=== PATIENT | female | born 1970 | race Caucasian/White ===

== ENCOUNTER 2019-02-23 08:59 | Emergency (ER) | payer SELFPAY ==
[~2019-02-23] VITALS: Ht 162.6 cm; Wt 81.6 kg
[2019-02-23] MEDS ORDERED: IBUPROFEN SUSP 100MG/5ML (MOTRIN) UDC PO ONE (10:00)
[2019-02-23] MEDS ORDERED: DEXAMETHASONE 4 MG/ML SDV (DECADRON) PO ONE (10:00)
[2019-02-23] MEDS ORDERED: ANTACID SUSP 30 ML UDC (MYLANTA) PO ONE (11:15)
[2019-02-23] MEDS ORDERED: LIDOCAINE 2% VISCOUS 15 ML UDC PO ONE (11:15)
--- NOTE | 2019-02-23 11:15 | ED EENT ---
History of Present Illness General Chief Complaint: Oral/Throat Problems Stated Complaint: SORE THROAT History of Present Illness Date Seen by Provider: Feb 23, 2019 Time Seen by Provider: 11:09 Initial Comments Patient presents emergency department for evaluation of a sore throat that has been going on for 3 days. She says it is very painful to swallow but has been able to. She has been taking ibuprofen for pain with minimal relief. She denies any voice change fevers chills nausea vomiting or systemic symptoms. She is in no obvious distress lying on the bed with normal vital signs. Allergies and Home Medications Allergies Coded Allergies: No Known Drug Allergies (Unverified , 02/23/19) Patient Home Medication List Home Medication List Reviewed: Yes Review of Systems Review of Systems Constitutional: no symptoms reported Ears: No Symptoms Reported Nose: no symptoms reported Mouth: no symptoms reported Throat: pain, swelling; denies neck stiffness, denies hoarse, denies aphonia, denies muffled; painful swallowing; denies difficulty with fluids Respiratory: no symptoms reported Cardiovascular: no symptoms reported Gastrointestinal: no symptoms reported Physical Exam Height, Weight, BMI Height: '" Weight: lbs. oz. kg; BMI Method: General Appearance: WD/WN, no apparent distress Nose: normal inspection Mouth/Throat: normal mouth inspection, pharynx swelling, tonsillar exudate; No voice changes; other (bilateral tonsils slightly enlarged with purulence noted on both however there is no signs of peritonsillar abscess. Uvula is midline and not swollen. Pharynx is diffusely erythematous although she has a quite patent airway.) Neck: non-tender, full range of motion, supple, normal inspection Cardiovascular: normal peripheral pulses Respiratory: lungs clear, no respiratory distress Progress/Results/Core Measures Results/Orders Lab Results Laboratory Tests Test 02/23/19 09:35 Range/Units Group A Streptococcus Screen NEGATIVE NEGATIVE My Orders Orders - ASHLEIGH ELLIS DO Rapid Strep A Screen (02/23/19 09:37) Dexamethasone Injection (Decadron Inject (02/23/19 10:00) Ibuprofen Suspension (Motrin Suspension) (02/23/19 10:00) Antacid Suspension (Mylanta Suspension (02/23/19 11:15) Lidocaine 2% Viscous 15 Ml (Xylocaine Vi (02/23/19 11:15) Progress Progress Note : Progress Note Patient has signs of purulent tonsillitis as well as a pharyngitis. There is no signs of peritonsillar abscess or retropharyngeal abscess or epiglottitis. She has normal voice and no neck stiffness or rigidity. She also has no fevers and appears nontoxic. Her strep swab is negative however that is not completely rule out bacterial etiology. She was given Decadron ibuprofen and lidocaine here and felt better. I told her I would prescribe her lidocaine and she should continue taking ibuprofen and Tylenol for pain and drink plenty of fluids. I discussed antibiotics and told her that I will prescribe her antibiotics but she did not have to started immediately she can try waiting a day or 2 and if she is getting better she would not need them however if she is getting worse she could go ahead and start the amoxicillin. She said amoxicillin gives her yeast infection so prescribe her Diflucan as well. I told her if she is having inability to swallow tolerate her secretions fevers difficulty breathing or other general concerns to come back to the emergency department immediately. Patient aware and agreeable with plan for discharge and verbalized understanding of the above instructions. Departure Impression Primary Impression: Pharyngitis Qualified Codes: J02.9 - Acute pharyngitis, unspecified Additional Impression: Acute infective tonsillitis Qualified Codes: J03.90 - Acute tonsillitis, unspecified Disposition: 01 HOME, SELF-CARE Condition: Stable Departure-Patient Inst. Referrals: NO,LOCAL PHYSICIAN (PCP/Family) Primary Care Physician Patient Instructions: Viral Pharyngitis (DC) Add. Discharge Instructions: All discharge instructions reviewed with patient and/or family. Voiced understanding. Take 400mg of ibuprofen every 6 hours and 650mg of tylenol every 6 hours. Drink plenty of fluids. Use otc cepacol. ASHLEIGH ELLIS DO Feb 23, 2019 11:15
[2019-02-23 11:57] VITALS: BP 153/77
--- NOTE | 2019-02-24 12:09 | NUR ---
Called to [facility] per v.o. Dr Aguirre, please refill pt's lost bottle for the Amoxicillin 875 mg p.o. BID #[address] José. Pt called earlier today requesting another bottle as can not find her antibiotic as it may have fell out of her purse somewhere. Dr Aguirre did initially not refill for negative strep test viewed on [employer] but lab has now sent a culture report of abundant growth Beta Strep Hemolytic Group C. Pt is having painful swallow/symptomatic still. Spoke with Jelena Swift at [facility]. Patient was notified.
[2019-02-24] MEDS ORDERED: AMOX875T2 PO (12:20)
== END 2019-02-23 12:01 | disposition home or self-care (01) ==
LOC: ER FS 09:01
DX: J03.90 Acute tonsillitis, unspecified (principal)
CPT/HCPCS: 87430; 99284

== ENCOUNTER 2019-11-04 14:20 | Emergency (ER) | payer SELFPAY ==
[~2019-11-04] VITALS: Ht 163 cm; Wt 86.1 kg
[~2019-11-04 14:20] MED LIST: AMOX875T2 PO
[2019-11-04 14:56] LABS: BACTERIA,URINE NEGATIVE /HPF; BILIRUBIN,URINE NEGATIVE (NEGATIVE); CLARITY,URINE CLEAR; COLOR,URINE YELLOW; GLUCOSE, URINE (UA) NEGATIVE (NEGATIVE); KETONES,URINE TRACE (NEGATIVE); LEUKOCYTE ESTERASE ,URINE NEGATIVE (NEGATIVE); NITRITE,URINE NEGATIVE (NEGATIVE); PROTEIN,URINE NEGATIVE (NEGATIVE); WBC,URINE RARE /HPF
--- NOTE | 2019-11-04 15:01 | ED Back Pain ---
General Chief Complaint: Back Problems Stated Complaint: KIMMIE FLANK PAIN Source of Information: Patient Exam Limitations: No Limitations History of Present Illness Date Seen by Provider: Nov 04, 2019 Time Seen by Provider: 14:55 Initial Comments Presents to 4 days of mid back pain without radiation. Worse with movement, primarily ending forward or twisting. Denies any increased frequency or pain with urination. Denies fever or chills. Denies nausea, vomiting or abdominal pain. Denies any recent history of trauma. Has a history of back pain and back surgery, however states this is not typical of her previous back pain. Allergies and Home Medications Allergies Coded Allergies: No Known Drug Allergies (Unverified , 02/23/19) Home Medications Amoxicillin 875 Mg Tablet, 875 MG PO BID, (Reported) Patient Home Medication List Home Medication List Reviewed: Yes Review of Systems Constitutional: no symptoms reported, see HPI; No fever, No malaise, No weakness Respiratory: No cough, No short of breath Cardiovascular: No chest pain, No palpitations Gastrointestinal: No abdominal pain, No vomiting Genitourinary: no symptoms reported, see HPI Musculoskeletal: back pain; No joint pain; muscle pain; No muscle weakness, No neck pain Past Dyzvcat-Nvnxxs-Bgkcnh Hx Past Med/Social Hx: Reviewed Nursing Past Med/Soc Hx Patient Social History Alcohol Use: Denies Use Recreational Drug Use: No Smoking Status: Current Everyday Smoker Type Used: Cigarettes 2nd Hand Smoke Exposure: Yes Recent Foreign Travel: No Contact w/Someone Who Travel: No Recent Hopitalizations: No Physical Abuse: No Sexual Abuse: No Mistreated: No Fear: No Seasonal Allergies Seasonal Allergies: No Past Medical History Surgeries: Yes (back surgery) Orthopedic Respiratory: No Cardiac: No Neurological: No Genitourinary: No Gastrointestinal: No Musculoskeletal: No Endocrine: No HEENT: Yes Tonsilitis Cancer: No Psychosocial: No Integumentary: No Blood Disorders: No Adverse Reaction/Blood Tranf: No Physical Exam Vital Signs Capillary Refill : Height, Weight, BMI Height: 5'4.00" Weight: 180lbs. oz. 81.517150gy; BMI Method:Stated General Appearance: No Apparent Distress, WD/WN Gastrointestinal: Non Tender, Soft Back: Normal Inspection, No Vertebral Tenderness, Decreased Range of Motion (2 to pain), Muscle Spasm (b/l upper lumbar paraspinal ms R > L); No Vertebral Tenderness Progress/Results/Core Measures Results/Orders Lab Results Laboratory Tests Test 11/04/19 14:30 Range/Units Urine Color YELLOW Urine Clarity CLEAR Urine pH 6.0 5-9 Urine Specific [place] 1.020 1.016-1.022 Urine Protein NEGATIVE NEGATIVE Urine Glucose (UA) NEGATIVE NEGATIVE Urine Ketones TRACE H NEGATIVE Urine Nitrite NEGATIVE NEGATIVE Urine Bilirubin NEGATIVE NEGATIVE Urine Urobilinogen 0.2 < = 1.0 MG/DL Urine Leukocyte Esterase NEGATIVE NEGATIVE Urine RBC (Auto) 2+ H NEGATIVE Urine RBC 2-5 H /HPF Urine WBC RARE /HPF Urine Squamous Epithelial Cells 2-5 /HPF Urine Crystals NONE /LPF Urine Bacteria NEGATIVE /HPF Urine Casts NONE /LPF Urine Mucus SMALL H /LPF Urine Other /HPF Urine Culture Indicated NO My Orders Orders - ROFANSTTARYN GUPTA DO Ua Culture If Indicated (11/04/19 14:45) Departure Impression Primary Impression: Back strain Qualified Codes: S39.012A - Strain of muscle, fascia and tendon of lower back, initial encounter Disposition: HOME, SELF-CARE Condition: Stable Departure-Patient Inst. Referrals: [facility],LOCAL PHYSICIAN (PCP) Primary Care Physician Patient Instructions: Lumbar Muscle Strain (DC) Add. Discharge Instructions: Call to make a follow up appointment in 1 wk, sooner if worse. All discharge instructions reviewed with patient and/or family. Voiced understanding. Scripts Ibuprofen (Ibuprofen) 800 Mg Tablet 800 MG PO Q8H PRN for PAIN, #30 TAB 0 Refills Prov: MELODYVENSTINETARYN L DO 11/04/19 Cyclobenzaprine HCl (Cyclobenzaprine HCl) 10 Mg Tablet 10 MG PO Q8H PRN for SPASMS, #20 TAB 0 Refills Prov: ROVENSTINE,TARYN L DO 11/04/19 ROVENSTINENANYTARYN L DO Nov 04, 2019 15:01
[2019-11-04] MEDS ORDERED: IBUP-1780 PO (15:30)
[2019-11-04] MEDS ORDERED: CYCL10TA9 PO (15:30)
[2019-11-04 15:34] VITALS: BP 150/69
--- OUTSIDE RECORDS SUMMARY | 2019-11-08 14:51 | XMS REPORT | Continuity of Care Document ---
Author Organization Unknown Address Unknown Phone Unavailable Allergies Active Description Code Type Severity Reaction Onset Reported/Identified Relationship to Patient Clinical Status Yes No Known Drug Allergies [id number] Drug Allergy Unknown N/A 02/23/2019 Medications There is no data. Problems Date Dx Coded Attending Type Code Diagnosis Diagnosed By 02/23/2019 ASHLEIGH ELLIS DO Ot J02 .9 ACUTE PHARYNGITIS, UNSPECIFIED 02/23/2019 ASHLEIGH ELLIS DO Ot J03.90 ACUTE TONSILLITIS, UNSPECIFIED 02/25/2019 ASHLEIGH ELLIS DO Ot J02 .9 ACUTE PHARYNGITIS, UNSPECIFIED 02/25/2019 ASHLEIGH ELLIS DO Ot J03.90 ACUTE TONSILLITIS, UNSPECIFIED 03/01/2019 ASHLEIGH ELLIS DO Ot J02 .9 ACUTE PHARYNGITIS, UNSPECIFIED 03/01/2019 ASHLEIGH ELLIS DO Ot J03.90 ACUTE TONSILLITIS, UNSPECIFIED Procedures There is no data. Results Test Result Range Streptococcus pyogenes antigen detection - 02/23/19 09:35 Streptococcus pyogenes antigen detection NEGATIVE NEGATIVE Bacterial throat culture - 02/23/19 00:2 2 Bacterial throat culture [id number] NRG FREE TEXT EXTERNAL PLUS NORMAL NORA NR G QUANTITY OF GROWTH Abundant Growth NRG Complete urinalysis with reflex to cultu re - 11/04/19 14:30 Urine color determination YELLOW NRG Urine clarity determination CLEAR NR G Urine pH measurement by test strip 6.0 5-9 Specific gravity of urine by test strip 1.020 1.016-1.022 Urine protein assay by test strip, semi-quantitative NEGATIVE NEGATIVE Urine glucose detection by automated test strip NE GATIVE NEGATIVE Erythrocytes detection in urine sediment by light micr oscopy 2+ NEGATIVE Urine ketones detection by automated test strip TR ELY NEGATIVE Urine nitrite detection by test strip NEGATIVE NEGATIVE Urine total bilirubin detection by test strip NEGA TIVE NEGATIVE Urine urobilinogen measurement by automated test strip (mass/volume) 0.2 mg/dL < = 1.0 Urine leukocyte esterase detection by dipstick NEG ATIVE NEGATIVE Automated urine sediment erythrocyte cou nt by microscopy (number/high power field) [HPF] NRG Automated urine sediment leukocyte count by microscopy (number/high power field) RARE NRG Bacteria detection in urine sediment by light microsco py NEGATIVE NRG Squamous epithelial cells detection in u rine sediment by light microscopy 2-5 NRG Crystals detection in urine sediment by light microsco py NONE NRG Casts detection in urine sediment by light microscopy NONE NRG Mucus detection in urine sediment by light microscopy SMALL NRG Complete urinalysis with reflex to culture NO NRG Encounters ACCT No. Visit Date/Time Discharge Status Pt. Type Provider Facility Loc./Unit Complaint [id number] 11/04/2019 14:22:00 020 15:34:00 DIS Emergency TARYN LOTT DO [facility] ER FS KIMMIE FLANK PAIN [id number] 02/23/2019 09:01:00 019 12:01:00 DIS Emergency ASHLEIGH ELLIS DO [facility] ER FS SORE THROAT
== END 2019-11-04 15:34 | disposition home or self-care (01) ==
LOC: EDUNIT# 14:20 → ER FS 14:22
DX: S39.012A Strain of muscle, fascia and tendon of lower back, initial encounter (principal); F17.210 Nicotine dependence, cigarettes, uncomplicated; X58.XXXA Exposure to other specified factors, initial encounter
CPT/HCPCS: 81000; 99282

== ENCOUNTER 2020-08-17 20:05 | Emergency (ER) | payer OTHER ==
[~2020-08-17 20:05] MED LIST changes: +CYCL10TA9 PO; +IBUP-1780 PO
[2020-08-17 21:00] LABS: HEMATOCRIT 50 % (35-52); HEMOGLOBIN 16.4 G/DL (11.5-16.0); MEAN CORPUSCULAR HEMOGLOBIN 30 PG (25-34); MEAN CORPUSCULAR HGB CONC 33 G/DL (32-36); MEAN CORPUSCULAR VOLUME 91 FL (80-99); MEAN PLATELET VOLUME 9.9 FL (7.4-10.4); PLATELET COUNT 391 10^3/uL (130-400); WHITE BLOOD COUNT 16.4 10^3/uL (4.3-11.0)
[2020-08-17 21:01] LABS: BASOPHILS % (AUTO) 0 % (0-10); EOSINOPHILS % (AUTO) 1 % (0-10); LYMPHOCYTES % (AUTO) 21 % (12-44); MONOCYTES % (AUTO) 6 % (0-12); NEUTROPHILS % (AUTO) 72 % (42-75)
[2020-08-17 21:02] LABS: BASOPHILS # (AUTO) 0.1 10^3/uL (0.0-0.1); EOSINOPHILS # (AUTO) 0.1 10^3/uL (0.0-0.3); LYMPHOCYTES # (AUTO) 3.5 X 10^3 (1.0-4.0); MONOCYTES # (AUTO) 0.9 X 10^3 (0.0-1.0); NEUTROPHILS # (AUTO) 11.8 X 10^3 (1.8-7.8)
--- NOTE | 2020-08-17 21:11 | Diagnostic Imaging Report ---
PROCEDURE: CT head and maxillofacial without contrast. TECHNIQUE: Multiple contiguous axial images were obtained through the head and facial bones without the use of intravenous contrast. Auto Exposure Controls were utilized during the CT exam to meet ALARA standards for radiation dose reduction. INDICATION: Fall with head and face trauma and loss of consciousness. FINDINGS: The ventricles and sulci are within normal limits. There is no hydrocephalus. There is no midline shift. There is no mass, hemorrhage or extra-axial fluid collection. The calvarium is intact. The frontal, ethmoid, sphenoid and maxillary sinuses are clear. Mastoid air cells are clear. The zygomatic arches are intact. The nasal bones intact. The pterygoid plates are intact. Lamina papyracea and orbital floors are intact. IMPRESSION: 1. No acute intracranial abnormality. 2. No displaced facial bone fracture. Dictated by: Dictated on workstation # [id number]
[2020-08-17 21:19] LABS: BAND NEUTROPHILS 2 %; BASOPHILS % (MANUAL) 0 %; EOSINOPHILS % (MANUAL) 1 %; LYMPHOCYTES % (MANUAL) 19 %; MONOCYTES % (MANUAL) 4 %; NEUTROPHILS % (MANUAL) 74 %
[2020-08-17 21:26] LABS: BUN/CREATININE RATIO 24; CARBON DIOXIDE 24 MMOL/L (21-32); CHLORIDE 103 MMOL/L (98-107); CREATININE SERUM 0.93 MG/DL (0.60-1.30); GFR ESTIMATED > 60; POTASSIUM 4.8 MMOL/L (3.6-5.0); SODIUM 141 MMOL/L (135-145)
[2020-08-17 21:27] LABS: ALANINE AMINOTRANSFERASE 16 U/L (0-55); ALBUMIN 4.7 GM/DL (3.2-4.5); ALKALINE PHOSPHATASE 115 U/L (40-136); BILIRUBIN,TOTAL 0.5 MG/DL (0.1-1.0); GLUCOSE 102 MG/DL (70-105); TOTAL PROTEIN 8.4 GM/DL (6.4-8.2)
[2020-08-17 21:45] LABS: AMPHETAMINE SCREEN, URINE NEGATIVE (NEGATIVE); BARBITURATE SCREEN URINE NEGATIVE (NEGATIVE); BENZODIAZEPINES SCREEN URINE NEGATIVE (NEGATIVE); CANNABINOID SCREEN, URINE POSITIVE (NEGATIVE); COCAINE SCREEN URINE NEGATIVE (NEGATIVE); METHADONE STAT NEGATIVE (NEGATIVE); METHAMPHETAMINE SCREEN URINE S NEGATIVE (NEGATIVE); OPIATE SCREEN URINE NEGATIVE (NEGATIVE); OXYCODONE STAT NEGATIVE (NEGATIVE); PROPOXYPHENE STAT NEGATIVE (NEGATIVE); TRICYCLIC ANTIDEPRESSANTS SCRE NEGATIVE (NEGATIVE)
--- NOTE | 2020-08-17 22:30 | ED Syncope ---
General Chief Complaint: Dizziness/Syncope Stated Complaint: HIGH BP Nursing Triage Note: [facility] and hitting her head on concrete. Per officer report, pt has issues with hypertension and panic attacks and passed out and hit her head. Officer reports a loc for about 4 minutes. Upon arrival, pt is alert and oriented. History of Present Illness Date Seen by Provider: Aug 17, 2020 Time Seen by Provider: 20:20 Initial Comments Patient is a 50-year-old female who had a witnessed syncopal episode while in custody. Patient fell face forward striking her forehead and right cheek bone. Patient reports loss of bladder function. She does not recall the episode and did not attempt to prior to DrOumar santos prior to falling. Denies dizziness lightheadedness palpitations, shortness of breath chest pain. Cards witnessed seizure-like episode. Patient has been incarcerated for 2 days. She denies history of long-standing alcohol, drug abuse her narcotic ingestion prior to episode. She is not diabetic. No history of CAD, PE, arrhythmia, valvular heart disease or prior seizure episodes. No history of alcohol withdrawal. No other acute symptoms or complaints. Timing/Prior Episodes: No Prior History Symptoms Prior to Episode: Injury Precipitating Factors: Activity Loss of Consciousness: Prolonged (Minutes) Current Symptoms: Back to Normal, Headache Allergies and Home Medications Allergies Coded Allergies: No Known Drug Allergies (Unverified , 02/23/19) Home Medications Amoxicillin 875 Mg Tablet, 875 MG PO BID, (Reported) Cyclobenzaprine HCl 10 Mg Tablet, 10 MG PO Q8H PRN for SPASMS Prescribed by: TARYN PAKSTCANDY on 11/04/19 1530 Ibuprofen 800 Mg Tablet, 800 MG PO Q8H PRN for PAIN Prescribed by: TARYN Jack ROVENSTINE on 11/04/19 1530 Patient Home Medication List Home Medication List Reviewed: Yes Review of Systems Constitutional: see HPI EENTM: see HPI Respiratory: see HPI Cardiovascular: see HPI Gastrointestinal: see HPI Genitourinary: see HPI Musculoskeletal: see HPI Skin: see HPI Psychiatric/Neurological: See HPI All Other Systems Reviewed Negative Unless Noted: Yes Past Fdhlasr-Uthihl-Jtfxzl Hx Past Med/Social Hx: Reviewed Nursing Past Med/Soc Hx Patient Social History Alcohol Use: Denies Use Recreational Drug Use: No Type Used: Cigarettes 2nd Hand Smoke Exposure: Yes Recent Foreign Travel: No Contact w/Someone Who Travel: No Recent Infectious Disease Expo: No Recent Hopitalizations: No Physical Abuse: No Sexual Abuse: No Seasonal Allergies Seasonal Allergies: No Past Medical History Surgeries: Yes (back surgery) Orthopedic Respiratory: No Cardiac: No Neurological: No Genitourinary: No Gastrointestinal: No Musculoskeletal: No Endocrine: No HEENT: Yes Tonsilitis Cancer: No Psychosocial: No Integumentary: No Blood Disorders: No Adverse Reaction/Blood Tranf: No Physical Exam Vital Signs Vital Signs - First Documented 08/17/20 20:05 Temp 36.8 Pulse 66 Resp 16 B/P (MAP) 122/56 (78) Pulse Ox 100 O2 Delivery Room Air Capillary Refill : Less Than 3 Seconds Height, Weight, BMI Height: 5'4.00" Weight: 180lbs. oz. 81.792869ii; 32.00 BMI Method:Stated General Appearance: No Apparent Distress, WD/WN HEENT: PERRL/EOMI, Normal ENT Inspection, Pharynx Normal, Other (right cheek swelling) Neck: Full Range of Motion, Non Tender, Supple Cardiovascular: Regular Rate, Rhythm, No Edema, No Murmur Respiratory: Chest Non Tender, Lungs Clear Gastrointestinal: Non Tender, Soft Extremities: Normal Capillary Refill, Normal Inspection, Non Tender Neurologic/Psychiatric: Alert, Oriented x3, No Motor/Sensory Deficits, Normal Mood/Affect, risk control specialist II-XII Norm as Tested Cranial Nerves: Normal Speech, PERRL, Abnormal Pupil Position Coordination/Gait: Normal Finger to Nose, Abnormal Gait Motor/Sensory: No Motor Deficit, No Sensory Deficit, No Pronator Drift, Negative Babinski's Sign Reflexes: 4+ Bicep (R), 4+ Bicep (L), 4+ Tricep (R) Focused Exam Sepsis Stage: Ruled Out Progress/Results/Core Measures Results/Orders Lab Results Laboratory Tests Test 08/17/20 20:52 08/17/20 20:54 08/17/20 21:27 Range/Units White Blood Count 16.4 H 4.3-11.0 10^3/uL Red Blood Count 5.49 4.35-5.85 10^6/uL Hemoglobin 16.4 H 11.5-16.0 G/DL Hematocrit 50 35-52 % Mean Corpuscular Volume 91 80-99 FL Mean Corpuscular Hemoglobin 30 25-34 PG Mean Corpuscular Hemoglobin Concent 33 32-36 G/DL Red Cell Distribution Width 13.5 10.0-14.5 % Platelet Count 391 130-400 10^3/uL Mean Platelet Volume 9.9 7.4-10.4 FL Immature Granulocyte % (Auto) 1 % Neutrophils (%) (Auto) 72 42-75 % Lymphocytes (%) (Auto) 21 12-44 % Monocytes (%) (Auto) 6 0-12 % Eosinophils (%) (Auto) 1 0-10 % Basophils (%) (Auto) 0 0-10 % Neutrophils # (Auto) 11.8 H 1.8-7.8 X 10^3 Lymphocytes # (Auto) 3.5 1.0-4.0 X 10^3 Monocytes # (Auto) 0.9 0.0-1.0 X 10^3 Eosinophils # (Auto) 0.1 0.0-0.3 10^3/uL Basophils # (Auto) 0.1 0.0-0.1 10^3/uL Immature Granulocyte # (Auto) 0.1 0.0-0.1 10^3/uL Neutrophils % (Manual) 74 % Lymphocytes % (Manual) 19 % Monocytes % (Manual) 4 % Eosinophils % (Manual) 1 % Basophils % (Manual) 0 % Band Neutrophils 2 % Sodium Level 141 135-145 MMOL/L Potassium Level 4.8 3.6-5.0 MMOL/L Chloride Level 103 98-107 MMOL/L Carbon Dioxide Level 24 21-32 MMOL/L Anion Gap 14 5-14 MMOL/L Blood Urea Nitrogen 22 H 7-18 MG/DL Creatinine 0.93 0.60-1.30 MG/DL Estimat Glomerular Filtration Rate > 60 BUN/Creatinine Ratio 24 Glucose Level 102 70-105 MG/DL Calcium Level 10.0 8.5-10.1 MG/DL Corrected Calcium 8.5-10.1 MG/DL Total Bilirubin 0.5 0.1-1.0 MG/DL Aspartate Amino Transf (AST/SGOT) 18 5-34 U/L Alanine Aminotransferase (ALT/SGPT) 16 0-55 U/L Alkaline Phosphatase 115 40-136 U/L Troponin I < 0.30 <0.30 NG/ML Total Protein 8.4 H 6.4-8.2 GM/DL Albumin 4.7 H 3.2-4.5 GM/DL Glucometer 96 70-110 MG/DL Urine Opiates Screen NEGATIVE NEGATIVE Urine Oxycodone Screen NEGATIVE NEGATIVE Urine Methadone Screen NEGATIVE NEGATIVE Urine Propoxyphene Screen NEGATIVE NEGATIVE Urine Barbiturates Screen NEGATIVE NEGATIVE Ur Tricyclic Antidepressants Screen NEGATIVE NEGATIVE Urine Phencyclidine Screen NEGATIVE NEGATIVE Urine Amphetamines Screen NEGATIVE NEGATIVE Urine Methamphetamines Screen NEGATIVE NEGATIVE Urine Benzodiazepines Screen NEGATIVE NEGATIVE Urine Cocaine Screen NEGATIVE NEGATIVE Urine Cannabinoids Screen POSITIVE H NEGATIVE My Orders Orders - CHEY GAMA DO Cbc With Automated Diff (08/17/20 20:25) Comprehensive Metabolic Panel (08/17/20 20:25) Ekg Tracing (08/17/20 20:25) Troponin I Fs (08/17/20 20:25) Chest 1 View Ap/Pa Only (08/17/20 20:25) Ct Head/Maxillofacial Wo (08/17/20 20:25) Drug Screen Stat (Urine) (08/17/20 20:25) Accucheck Fasting (08/17/20 20:25) Manual Differential (08/17/20 20:52) Ed Iv/Invasive Line Start (08/17/20 21:19) Vital Signs/I&O 08/17/20 20:05 Temp 36.8 Pulse 66 Resp 16 B/P (MAP) 122/56 (78) Pulse Ox 100 O2 Delivery Room Air Blood Pressure Mean: 78 Departure Communication (Admissions) Patient with normal vital signs, and neurologic imaging and exam. EKG lab and imaging reviewed and reassuring. The procedure instructions provided. Patient di scharged to custody of school services officer with instructions to follow up with PCP or infirmary for further outpatient evaluation Impression Primary Impression: Syncope Additional Impression: Seizure Disposition: 01 HOME, SELF-CARE Condition: Stable Departure-Patient Inst. Referrals: NO,LOCAL PHYSICIAN (PCP/Family) Primary Care Physician Patient Instructions: Syncope (Fainting) (DC), Seizures Add. Discharge Instructions: Please avoid driving, and potential positions of danger and follow-up with infirmary or PCP for medical clearance prior to assuming driving and other normal activity. Return to the ED if new or worsening symptoms. All discharge instructions reviewed with patient and/or family. Voiced understanding. CHEY GAMA DO Aug 17, 2020 22:30
[2020-08-17] MEDS ORDERED: HYDROcodone/APAP 5 MG/325 MG (LORTAB) TAB PO ONE (22:45)
[2020-08-17 22:52] VITALS: BP 138/77
--- NOTE | 2020-08-20 08:59 | Diagnostic Imaging Report ---
EXAMINATION: Chest 1 view HISTORY: Fall. Syncopal episode. COMPARISON: None available. FINDINGS: The lung volumes are normal. No focal consolidation is seen. No large pleural effusion or pneumothorax is seen. The cardiomediastinal silhouette is normal in size and contour. No acute osseous abnormality is seen. IMPRESSION: 1. No acute pleuroparenchymal process. Dictated by: Dictated on workstation # [id number]
== END 2020-08-17 22:52 | disposition home or self-care (01) ==
LOC: EDUNIT# 20:05 → ER FS 20:06
DX: R55 Syncope and collapse (principal); R56.9 Unspecified convulsions; Z77.22 Contact with and (suspected) exposure to environmental tobacco smoke (acute) (chronic)
CPT/HCPCS: 36415; 70450; 70486; 71045; 80053; 80306; 82962; 84484; 85007; 85027; 93005